=== PATIENT | male | born 1945 | race Caucasian/White ===

== ENCOUNTER 2016-11-05 13:04 | Inpatient (IN) | payer MEDICARE ==
[2016-11-05] VITALS (9 sets, daily range): BP systolic 83–94; BP diastolic 55–66; PULSE 62–73; RESP 13–20; O2SAT 94–100
[~2016-11-05] VITALS: Ht 175.3 cm; Wt 71.0 kg
[~2016-11-05 13:04] MED LIST: APIX5TAB PO; CHOL5000 PO; HYDR-4003 PO; IPIL50VI IV; KEP500TA PO; MIRT7.5T8 PO; NIVO40VI IV
--- NOTE | 2016-11-05 13:16 | ED.REPORT ---
HPI-General Illness Date of Service Nov 05, 2016 ED Provider: The patient is a 70 year old male with history of metastatic melanoma s/p lobectomy, atrial fibrillation, stroke, and small bowel obstruction, who was sent to the emergency department by ut oncologist Dr. Loaiza. He is currently receiving chemotherapy treatments. After his last infusion he became very ill and required outpatient IVF for a week for dehydration. He had a blood culture that showed evidence of a possible staph infection, so he was subsequently hospitalized at [facility] over the weekend. The second blood culture came back negative so the antibiotics were discontinued. He has experienced decreased appetite, nausea, vomiting, and diarrhea. His states he has lost over 20 pounds in the last few weeks. His also reports he had a stool test 4-5 days ago that did not show any pathogenic reason for his diarrhea. Nursing Notes Stated Complaint: GENERAL COMPLAINT Chief Complaint: General Complaint Nursing Notes Reviewed: Yes Allergies: Coded Allergies: No Known Allergies (Unverified , 08/12/16) Scheduled Apixaban (Eliquis) 5 Mg Tablet 5 MG PO BID Cholecalciferol (Vitamin D3) (Vitamin D3) 5,000 Unit Capsule 5,000 UNIT PO DAILY Ipilimumab (Yervoy) 50 Mg/10 Ml Vial 80 MG IV [id number] Levetiracetam (Keppra) 500 Mg Tablet 500 MG PO BID Mirtazapine (Mirtazapine) 7.5 Mg Tablet 7.5 MG PO HS Nivolumab (Opdivo) 40 Mg/4 Ml Vial 80 MG IV [id number] Scheduled PRN Hydrocodone-Acetaminophen 5-325 mg (Hydrocodone-Acetaminophen 5-325 mg) 1 Each Tablet 1 TABLET PO Q4 PRN PRN For Mild Pain General Time Seen by MD: 13:16 Chief Complaint Vomiting Hx Obtained From: Patient, Spouse Sudden in Onset?: No Onset Occurred: More than a week ago... Symptom Duration: Since onset Severity: Current: No pain currently Severity: Maximum: No pain Recent Healthcare: Recent doctor visit, Recent hospitalization Similar Sx Previous: Yes Past Medical History Past Medical History Notes: Oncology: Dr. Loaiza Past Medical History Metastatic melanoma Hx of SBO Hx of toxic megacolon Reports: Cancer, Stroke Reports: Atrial fibrillation Past Surgical History Lung Lobectomy Brain surgery, July 2016 Family History Noncontributory Smoking History Former Smoker Social History Alcohol Use: 1-3 per week Other Social History: Good social support, , Local resident Ambulatory Status Independent Review of Systems Full Review of Systems Constitutional: Reports: Recent wt loss, Weakness - generalized GI: Reports: Anorexia, Diarrhea, Nausea, Vomiting Complete sys rev & neg: except as marked. Physical Exam Vital Signs Vital Signs Date Time Temp Pulse Resp B/P Pulse Ox O2 Delivery O2 Flow Rate FiO2 11/05/16 13:32 36.9 73 20 93/55 94 11/05/16 13:20 36.9 69 16 88/58 94 Room Air 11/05/16 13:06 35.6 73 14 93/55 97 Initial VS: Reviewed, Vital signs abnormal (hypotensive) Head / Eyes: Atraumatic, Normocephalic, PERRL ENT: Mucous membranes moist, Conjunctiva normal, No scleral icterus Neck: Supple, Non-tender, Full range of motion Respiratory: Breath sounds normal, Clear to auscultation, No respiratory distress Cardiovascular: Regular rate & rhythm, Heart sounds normal, Intact distal pulses Lymphatic: No lymphadenopathy Extremities: Vascular intact, Neuro intact, No swelling, No tenderness Skin: Warm, Dry, No cyanosis Neurologic: Alert, Oriented, Nonfocal Psychiatric: Mood/affect normal, Behavior normal, Normal thought content General/Constitutional: Awake, Alert Distress / Hydration: Positive: Dehydration moderate Abdomen: Soft, Non-tender, No guarding, No rebound, BS normoactive, No distention Colostomy bag in place Interpretation & Diagnostics Lab Results Interpretation Result Diagram: 11/05/16 1339 11/05/16 1400 Test 11/05/16 13:39 11/05/16 13:42 11/05/16 14:00 11/05/16 15:40 White Blood Count 16.1th/mm3 (3.8-10.1) Red Blood Count 5.49mil/mm3 (4.40-5.80) Hemoglobin 15.1g/dL (13.8-17.2) Hematocrit 43.1% (41.0-50.0) Mean Corpuscular Volume 78.5fL (81-100) Mean Corpuscular Hemoglobin 27.5pg (27.0-35.0) Mean Corpuscular Hemoglobin Concent 35.0% (32.0-37.0) Red Cell Distribution Width 16.7% (12.3-15.4) Platelet Count 485bil/L (150-400) Neutrophils (%) (Auto) 86.6% (40-74) Lymphocytes (%) (Auto) 9.7% (14-46) Monocytes (%) (Auto) 2.3% (4-12) Eosinophils (%) (Auto) 0.1% (0-5) Basophils (%) (Auto) 0.1% (0-3) Lactic Acid Level 1.4mmol/L (0.4-2.0) Sodium Level 126mEq/L (134-144) Potassium Level 4.3mEq/L (3.5-5.2) Chloride Level 96mEq/L (97-108) Carbon Dioxide Level 11mmol/L (18-29) Blood Urea Nitrogen 73mg/dL (8-27) Creatinine 3.19mg/dL (0.76-1.27) Estimat Glomerular Filtration Rate 21mL/min (>59) Glucose Level 118mg/dL (60-99) Calcium Level 9.3mg/dL (8.5-10.1) Magnesium Level 2.6mg/dL (1.6-2.6) Total Bilirubin 0.3mg/dL (0.0-1.2) Aspartate Amino Transf (AST/SGOT) 24U/L (0-50) Alanine Aminotransferase (ALT/SGPT) 57U/L (0-44) Alkaline Phosphatase 115U/L (25-160) Troponin T < 0.010ug/L (0.0-0.011) Total Protein 6.8g/dL (6.4-8.4) Albumin 3.4g/dL (3.4-5.0) Hold Urine Received (Received) Test 11/05/16 15:52 ECG Interpretation ECG Interpretation: Sinus rhythm with a rate of 60 PACs Otherwise no acute ischemic changes Time: 14:15 Interpreted by: ED physician CT Chest Interpretation IMPRESSION: No acute cardiopulmonary disease process. Dictated by: Zuleima Peck MD, PhD on 11/05/2016 at 15:20 Study type: Chest CT no contrast Interpretation / Wet Read by: Interpret - Radiologist Re-Eval/Medical Decision Med Decision/Clinical Course Dehydration, acute kidney injury, leukocytosis without a pneumonia. Care is transferred to Dr. Marrero for further disposition and admission versus transfer. Source of Hx: Old records, Family Time of Eval: 14:58 Re-Evaluation/Progress Note: Rechecked the patient. Discussed plan to wait for imaging results. Time of Eval: 15:32 Re-Evaluation/Progress Note: Discussed CT results, diagnosis, and plan for admission. All questions were addressed. Consultation : Consulted With: Hospitalist Requested Call at: 15:05 Systems Checkout Mechanic: Will see patient, Agrees with eval, Agrees with plan, Accepts admit Counseled Regarding: Diagnosis, Lab results, Need for admission Discharge & Departure Primary Impression: Acute kidney injury Disposition: ADMITTED TO HOSPITAL Discharge Condition All VS Reviewed: Yes Condition: Stable Referrals: Sterling Garcia MD (PCP) Randee Loaiza MD Care Transferred to: [facility] Transferred at: 15:45 Scribe Attestation Portions of this note were transcribed by Quyen Moran. I, Dr. Padilla personally performed the history, physical exam and medical decision-making; I reviewed and confirmed the accuracy of the information in the transcribed note. Signed by: Diogenes Mosher, 11/05/2016 at 1540. copies to: Sterling Garcia MD; Randee Loaiza MD, Timothy S DO Nov 05, 2016 13:16 Quyen Moran Nov 05, 2016 13:42
[2016-11-05] MEDS ORDERED: 0.9% Sodium Chloride 1,000 ML IV ONE ×2 (13:42→13:50)
[2016-11-05 14:04] LABS: BASOPHILS % (AUTO) 0.1 % (0-3); EOSINOPHILS % (AUTO) 0.1 % (0-5); MONOCYTES % (AUTO) 2.3 % (4-12); Mean Corpuscular Hemoglobin 27.5 pg (27.0-35.0); Mean Corpuscular Volume 78.5 fL (81-100); NEUTROPHILS % (AUTO) 86.6 % (40-74); Platelet Count 485 bil/L (150-400)
[2016-11-05 14:41] LABS: TROPONIN T < 0.010 ug/L (0.0-0.011)
[2016-11-05 14:51] LABS: Magnesium 2.6 mg/dL (1.6-2.6)
--- NOTE | 2016-11-05 15:28 | DRSVH ---
PROCEDURE: CT CHEST WITHOUT CONTRAST ([id number]) INDICATIONS: SHORTNESS OF BREATH/HX OF PNEUMONIA TECHNIQUE: Noncontrast 5 mm thick sections acquired from the pulmonary apices to the posterior costophrenic angl es. 7 mm thick coronal and sagittal MIP reformats were then acquired. For radiation dose reduction, the following was used: automated exposure control, adjustment of mA and/or kV according to patient size. COMPARISON: [facility], CT, CT CHEST ABD PELVIS W CON, 10/08/2016, 13:09. FINDINGS: Image quality: Excellent. Lungs and pleura: No acute air space opacities. Small right lung nodules identified a prior CT scan obtained and 16 have resolved. Nodule in the left lower lobe has resolved. No new lung nodul es are identified. Postsurgical changes noted in the right lung base which are stable compared to cherise or examination. No pleural effusions or pneumothorax. Pleural thickening noted in the posterior aspec t of the left lung base. Central and peripheral airways are patent and normal in caliber. Mediastinum: Heart size is normal. Atherosclerotic calcifications noted in the aortic arch and the c oronary vasculature. No pericardial effusion. No mediastinal adenopathy by size criteria. Thoracic aorta and central pulmonary arteries are normal in size. Esophagus is normal in caliber. No hiatal hernia. Bones and chest wall: Postsurgical changes compatible with prior right thoracotomy noted. No suspici ous bony lesions. No vertebral body compression fractures. No axillary or supraclavicular adenopath y by size criteria. Thyroid gland is within normal limits. Abdomen: Hypoattenuating lesions in the left lobe of the liver are not significantly changed compared to prior CT scan. Limited evaluation of the upper abdomen is otherwise within normal limits. IMPRESSION: No acute cardiopulmonary disease process. Dictated by: Zuleima Peck MD, PhD on 11/05/2016 at 15:20 Approved by: Zuleima Peck MD, PhD on 11/05/2016 at 15:27
[2016-11-05] MEDS ORDERED: Lactated Ringer's 1,000 ML IV ONE ×2 (16:00→17:25)
[2016-11-05 16:33] LABS: APPEARANCE,URINE CLEAR (CLEAR,HAZY); COLOR,URINE YELLOW (YELLOW); OCCULT BLOOD,URINE TRACE (NEGATIVE); PH,URINE 5.5 (5.0-8.0); UROBILINOGEN,URINE NORMAL (NORMAL)
[2016-11-05] MEDS ORDERED: Alum-Mag Hydrox-Simeth 30 mL Suspension PO PRN (17:25)
[2016-11-05] MEDS ORDERED: Ondansetron 2 mg/mL 2 mL Inj IVPUSH PRN (17:25)
--- NOTE | 2016-11-05 17:48 | DRSVH ---
PROCEDURE: CT ABDOMEN AND PELVIS WITHOUT CONTRAST ([id number]) INDICATIONS: Sepsis, Cr 3 so no IV contrast TECHNIQUE: Noncontrast 5 mm thick sections acquired from the diaphragms to the symphysis. 5 mm coronal and sagi ttal reformats were then performed. For radiation dose reduction, the following was used: automated exposure control, adjustment of mA and/or kV according to patient size. COMPARISON: [facility], CT, CT CHEST ABD PELVIS W CON, 10/08/2016, 13:09. FINDINGS: Image quality: Excellent. ABDOMEN: Lung bases: There is a trace right pleural effusion. This is unchanged when compared with the study d ated 10/08/16. The lung bases are otherwise clear. Solid organs: Liver and spleen are normal in size. Gallbladder is unremarkable. Pancreas is normal in contours. No adrenal nodules. Kidneys are normal in size, without hydronephrosis or nephrolithi asis. Peritoneum and bowel: Unenhanced bowel loops demonstrate normal wall thickness and caliber. A divert ing ileostomy is present within the right lower quadrant. There is a small amount of herniated parast omal fat. Anastomotic suture is present in the right lower quadrant. Patient is likely status post ri ght hemicolectomy. No free fluid or air. Nodes and vessels: No retroperitoneal or mesenteric adenopathy by size criteria. Aorta and inferior vena cava are normal in caliber. There are scattered atheromatous calcifications throughout the aor ta and iliac arteries bilaterally. Miscellaneous: No ventral hernias. PELVIS: Genitourinary: Bladder wall thickness is normal. Miscellaneous: No inguinal hernias or adenopathy. Bones: No suspicious bony lesions. No vertebral body compression fractures. IMPRESSION: 1. No acute intra-abdominal findings. Probable prior appendectomy and right hemicolectomy. 2. Trace right pleural effusion or pleural thickening unchanged on the prior study. Dictated by: Beata Guzman M.D. on 11/05/2016 at 17:41 Approved by: Beata Guzman M.D. on 11/05/2016 at 17:46
[2016-11-05] MEDS ORDERED: ACET325C PO (17:50)
[2016-11-05] MEDS ORDERED: OFLO5DRO5 BOTH_EYES (17:50)
[2016-11-05] MEDS ORDERED: LACT1CAP73 PO (17:50)
[2016-11-05] MEDS ORDERED: ZLP5T PO (17:50)
[2016-11-05] MEDS ORDERED: LEVE250T4 PO (17:50)
[2016-11-05] MEDS ORDERED: MIRT15TA6 PO (17:50)
[2016-11-05] MEDS ORDERED: PRE20 PO (17:50)
--- NOTE | 2016-11-05 18:46 | NUR ---
ADMIT Patient arrived on floor at 1835 from ED. Able to self transfer from [facility] to bed with no assist. AAOx3, denies pain and in no apparent distress but reports he is very weak and has lost 20 lbs in the last two weeks. Med rec completed in ED by admit RN. Oriented to room, MPC, call light and hospital policy. Oncologist currently at bedside to assess patient. Bed low and locked, call light in reach, care and rounding ongoing.
--- NOTE | 2016-11-05 20:37 | PROG NOTE ---
[address] [address] PROGRESS NOTE PATIENT: ANIBAL SOLORIO : 1945 MR#: [id number] ADMIT: 11/05/2016 JOB ID: [id number] DATE: 11/05/2016 DIAGNOSES: 1. Current admission for persistent nausea, vomiting and diarrhea, associated with dehydration and acute kidney injury. 2. Widely metastatic melanoma, BRAF wild type. HISTORY OF PRESENT ILLNESS: The patient is a very pleasant 70-year-old gentleman with a recent history of metastatic melanoma, for which he has so far undergone two craniotomies, a right lower lobectomy, right hemicolectomy, stereotactic brain radiotherapy, and immune checkpoint inhibitor therapy including four infusions of pembrolizumab and so far three infusions of nivolumab/ipilimumab combination. He has responded to the latter, but has had excessive toxicity from it. His most recent treatment was given on October 18, 2016. He is on anticoagulation therapy for left lower extremity DVT. CURRENT ILLNESS: Roughly a week after his last immune therapy on October 18, his current illness started with persistent severe diarrhea, nausea, anorexia and continued weight loss. He initially had fever, but that subsequently resolved. He was evaluated in our clinic, and had a positive blood culture on October 30. Initially, it was reported as gram-positive cocci, but later this was only one of four bottles, and it was coagulase negative Staph. Nonetheless, before knowing the bacterial identification, the patient was admitted at [facility] and started vancomycin. He only received vancomycin for two days and then it was stopped as bacterial identification came in. He was also started on IV steroids for his immune-related diarrhea. He was discharged from [facility] last Friday, but his diarrhea and nausea continued at home. On day of discharge on Friday, his creatinine was 2, and it has further increased to 3.2 today. His contacted our office and we advised them to refer to ER. Currently after receiving IV hydration in the ED, he feels better. He actually feels hungry. He denies any abdominal pain. He has not had any fever, chills or sweats. He vomited this morning, but does not feel nauseated anymore. His diarrhea has continued. PHYSICAL EXAMINATION: Appears weak, but in no discomfort. Blood pressure 89/60, heart rate 64, O2 saturation 99% on room air. Temperature afebrile. HEENT normal. Lungs: Clear to auscultation bilaterally. Cardiac: Regular rate and rhythm. Abdomen is soft and nontender without mass or hepatosplenomegaly. Extremities: No edema. CT chest and CT abdomen/pelvis without contrast was obtained earlier today. The previous metastatic lesion in the left lower lobe seems to have resolved. CT scan of abdomen and pelvis was negative for acute intra-abdominal findings. Liver grossly appears unremarkable, but this is a noncontrast study. LABORATORY DATA: Creatinine 3.2. Sodium 126, potassium 4.3, albumin 3.4. WBC count 16,000 with 87% neutrophils, hemoglobin 15.1, and platelet count 485,000. IMPRESSION AND PLAN: 1. Severe diarrhea, associated with dehydration and acute kidney injury. I believe his diarrhea is related to immune checkpoint inhibitor therapy, and the treatment for this is glucocorticoid therapy. I will start him on IV Solu-Medrol 1 mg/kg IV b.i.d. Continue hydration with normal saline 100 mL/h. Monitor renal function daily. As far as diet, I would like this patient to have the liberty to order regular diet, but he may choose liquids or pureed. 2. There is no indication to give this gentleman antibiotic therapy. His leukocytosis is related to steroids. 3. Metastatic melanoma. This seems to have responded to immune checkpoint inhibitor therapy, although later he needs to have a contrast CT scan of abdomen and pelvis to assess his liver metastases. 4. Left lower extremity deep venous thrombosis. Continue Eliquis but dose reduce to 2.5 mg b.i.d. based on renal function.
--- NOTE | 2016-11-05 21:27 | PCM.HPMED ---
Subjective Date of Service Nov 05, 2016 Primary Provider: Admitting Physician: Patrice Ortiz MD Primary Care Physician: Sterling Garcia MD Attending Physician: Patrice Ortiz MD Chief Complaint: intractable nausea, vomiting, food intolerability History of Present Illness: 70 year old male with history of metastatic melanoma s/p lobectomy, atrial fibrillation, stroke, and small bowel obstruction with ileostomy p/w intractable nausea vomiting diarrhea Patient was usual state of health until 12 days ago, started having intractable nausea and vomiting diarrhea. Episode started one week after his immunotherapy. Patient was admitted to [facility], blood cultures initially positive for infection,"staph" started on antibiotics, however repeat one was negative. but also found to have pneumonia, so patient was getting antibiotics mainly for pneumonia later the course. During this hospital course, pt had persistent nausea and vomiting and copious diarrhea, unable to eat anything, lost 12 pounds within 12 days. Patient was discharged 2 days ago with [id number] and cefuroxime 500 mg twice a day for pneumonia. was consulted during hospitalization, started prednisone 75 mg bid one day prior to d/c, in the hope that it could treat intractable nausea, fluid intolerability as per pt. Patient was able to eat something on the day of discharge. However since patient was discharged, symptoms continued, diarrhea turned greenish, still very copious >1liters/d continuously, patient consulted with Dr. Quijano today, sent to [facility] for further management In the emergency room VS 93/55, 73, 14, afebrile, 97% onRA, labs notable for wbc16, significant EVELYNE, worsening hyponatremia, received 3liter of NS. leone scan chest/abd/pelvis showed no acute findings. ROS:currently pt denied fever, chills, chest pain, palpitation, cough, sputum, abdominal pain, nausea, vomiting. Review of Systems: Pertinent positives as noted in history of present illness. All other systems were reviewed and are negative Allergies Coded Allergies: No Known Allergies (Unverified , 08/12/16) Home Medications Scheduled Cefuroxime 500mg bid [id number] qd Apixaban (Eliquis) 5 Mg Tablet 5 MG PO BID Cholecalciferol (Vitamin D3) (Vitamin D3) 5,000 Unit Capsule 5,000 UNIT PO DAILY Ipilimumab (Yervoy) 50 Mg/10 Ml Vial 80 MG IV [id number] Levetiracetam (Keppra) 500 Mg Tablet 500 MG PO BID Mirtazapine (Mirtazapine) 7.5 Mg Tablet 7.5 MG PO HS Nivolumab (Opdivo) 40 Mg/4 Ml Vial 80 MG IV [id number] Scheduled PRN Hydrocodone-Acetaminophen 5-325 mg (Hydrocodone-Acetaminophen 5-325 mg) 1 Each Tablet 1 TABLET PO Q4 PRN PRN For Mild Pain PMH PMHX 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 Metastatic melanoma Lung Lobectomy Brain surgery, July 2016 Hx of SBO Hx of toxic megacolon Stroke Atrial fibrillation FAMILY HX no cancer Smoking History Former Smoker SOCIAL EtOH Social History Hx Alcohol Use: Yes (occasional beer) Hx Substance Use: No Smoking Status: Former Smoker Exam Vital Signs Vital Sign - Last Date Time Temp Pulse Resp B/P Pulse Ox O2 Delivery O2 Flow Rate FiO2 11/05/16 17:59 64 19 89/60 99 Room Air 11/05/16 13:32 36.9 Exam NAD, comfortably laying down on the bed no JVD, MMM, no LAD RRR, nl s1, s2 no mrg CTAB, no w,c S,ND,NT,normoactive BS+ warm, no edema, pulses 2/[address], no remaining stools Lab and Diagnostics Result Diagram: 11/05/16 1339 11/05/16 1400 Assessment & Plan 70 year old male with history of metastatic melanoma s/p lobectomy, atrial fibrillation, stroke, and small bowel obstruction with ileostomy p/w intractable nausea vomiting diarrhea acute, active #significant dehydration with food intolerability, intractable nausea vomiting diarrhea, likely related to active immunotx, panscan negative for organica causes, which is reassuring. -will continue [id number] qd for now, -hold off on Cefuroxime based on unremarkable Chest CT, SIRS neg -will try clear diet, with zofran pre-medicated tonight, pt is amenable to TPN as similar episode happened in the past. #hypotension, POA, seemed chronic based on previous v/s, pt mentating well, not tachycardic, will monitor on telemetry for now chronic, stable #metastatic melanoma s/p lobectomy, on immunotx -appreciate oncology consult tomorrow #small bowel obstruction with ileostomy, monitor output q12h #atrial fibrillation, stroke, continue apixaban. dispo:Patient will be admitted with inpatient status with expectation of inpatient therapy for more than 2 midnights diet:clear now dvt ppx:systemic AC Full code Time spent 65 minutes Patrice Ortiz MD Nov 05, 2016 19:05
[2016-11-05] MEDS: MethylprednisoLONE Sodium Succinate 40 mg/mL Inj IVPUSH SCH (22:27)
[2016-11-05] MEDS: Lactated Ringer's 1,000 ML IV SCH (22:28)
[2016-11-06] VITALS (7 sets, daily range): BP systolic 97–118; BP diastolic 52–75; PULSE 62–74; RESP 16–18; O2SAT 97–99
--- NOTE | 2016-11-06 06:21 | NUR ---
Uneventful Night: Pt had an uneventful night, no c/o pain, chest pain or SOB. Pt slept most of the night, pleasant and cooperative with care.
[2016-11-06 06:56] LABS: BASOPHILS % (AUTO) 0.1 % (0-3); EOSINOPHILS % (AUTO) 0 % (0-5); MONOCYTES % (AUTO) 1.3 % (4-12); Mean Corpuscular Hemoglobin 27.6 pg (27.0-35.0); Mean Corpuscular Volume 80.3 fL (81-100); NEUTROPHILS % (AUTO) 90.9 % (40-74); Platelet Count 318 bil/L (150-400)
[2016-11-06 07:22] LABS: Magnesium 2.3 mg/dL (1.6-2.6); Phosphorus 5.2 mg/dL (2.5-4.9)
[2016-11-06] MEDS ORDERED: predniSONE 20 mg Tablet PO SCH (08:00)
[2016-11-06] MEDS: Lactated Ringer's 1,000 ML IV SCH ×3 (08:59→23:24)
[2016-11-06] MEDS: MethylprednisoLONE Sodium Succinate 40 mg/mL Inj IVPUSH SCH ×2 (09:25→20:09)
--- NOTE | 2016-11-06 10:09 | NUR ---
Social Work: Brief Note Data: Pt is a 70 y/o male admitted for EVELYNE. Pt's PCP is Dr Garcia, pt's insurance is Medicare with [employer] supp. EMR reviewed. FORK OPERATOR attempted to meet with pt for initial assessment, pt using the restroom. Per previous visits, pt has history with [facility], RN/PT. FORK OPERATOR gave access to [facility]. FORK OPERATOR will attempt initial assessment at a later time. Assessment: Pt who is independent at baseline. Plan: Pt will likely d/c home via POV with resume [facility], FORK OPERATOR will attempt initial assessment at a later time. FORK OPERATOR will continue to follow. AISSATOU Benites
--- NOTE | 2016-11-06 11:19 | NUR ---
Social Work-initial assessment: Data:See initial assessment. Pt is a 70 y/o male who was admitted on 11/05/16 for EVELYNE per H&P. Pt's insurance is [employer] and [employer] and PCP is Sterling Garcia MD. EMR reviewed. SW met with pt to discuss discharge planning, SW role explained. Pt resides at home with his in [place] where he remains independent with ADLs. Pt does not use any DME and does not drive. Pt has no [facility] care insurance or VA benefits. SW discussed DPOA/ advanced directive, pt states they have completed this, SW encouraged pt to bring a copy into the hospital. Pt has history with [facility] and has no SNF history. SW provided pt with phone number and plan on white board in room. SW placed a call to pt's Claudia and discussed plans. states they used to have [facility] in the past, but are not currently open on Services. states that she does not feel like they will need HH services. plans on providing transport at discharge. No anticipated discharge needs. SW will continue to follow if needs arise. Assessment:Pt who is independent at baseline. Plan:Pt to discharge home when medically stable via POV. No anticipated discharge needs. SW will continue to follow if needs arise. AISSATOU Werner Addendum: 11/06/16 at 1134 by PAUL LARA Amended: Links added.
--- NOTE | 2016-11-06 11:46 | PCM.PNMED ---
Subjective Date of Service Nov 06, 2016 Subjective Patient reportedly was able to tolerate Risotto yesterday No father nausea or vomiting, still has watery stools noted in ostomy bag Patient feels hungry, diet advanced to general Exam Vital Signs Vital Sign - Last Date Time Temp Pulse Resp B/P Pulse Ox O2 Delivery O2 Flow Rate FiO2 11/06/16 11:24 36.4 11/06/16 10:04 73 16 103/69 99 Room Air Intake and Output 11/05/16 11/05/16 11/06/16 Cumulative From/Thru 15:00 23:00 07:00 11/05/16 13:06 - 11/06/16 06:32 Intake Total 2000 ml 1000 ml 1037 ml 4037 ml Output Total 100 ml 1000 ml 1100 ml Balance 2000 ml 900 ml 37 ml 2937 ml Intake Oral 350 ml 350 ml IV Total 2000 ml 1000 ml 687 ml 3687 ml Output Urine Total 750 ml 750 ml Stool Total 100 ml 250 ml 350 ml Exam NAD, comfortably laying down on the bed no JVD, MMM, no LAD RRR, nl s1, s2 no mrg CTAB, no w,c S,ND,NT,normoactive BS+ warm, no edema, pulses 2/[address], greenish watery diarrhea IVs and Medications Medications Reviewed: Medications were reviewed in detail Lab and Diagnostics Result Diagram: 11/06/1662711/06/16627 Assessment & Plan 70 year old male with history of metastatic melanoma s/p lobectomy, atrial fibrillation, stroke, and small bowel obstruction with ileostomy p/w intractable nausea vomiting diarrhea acute, active #significant dehydration with food intolerability, intractable nausea vomiting diarrhea, likely related to active immunotx, panscan negative for organica causes, which is reassuring. -Appreciate input, started Solu-Medrol 60 q12h yesterday, pt seemed to respond, able to tolerate diet. -hold off on Cefuroxime based on unremarkable Chest CT, SIRS neg -will try general diet, with zofran prn, Of note pt is amenable to TPN as similar episode happened in the past. #hypotension, POA, seemed chronic based on previous v/s, pt mentating well, not tachycardic, general trends improved with steroid #EVELYNE, POA, likely prerenal from dehydration, improving with hydration, trends cr , avoid renal toxin, renally adjust meds. chronic, stable #metastatic melanoma s/p lobectomy, on immunotx -appreciate oncology input #small bowel obstruction with ileostomy, monitor output q12h #atrial fibrillation, stroke, continue apixaban 2.5 bid #seizure d/o, continue keppra home dose dispo:Patient will be admitted with inpatient status with expectation of inpatient therapy for more than 2 midnights diet:clear now dvt ppx:systemic AC Full code Time spent 35 minutes Patrice Ortiz MD Nov 06, 2016 11:46
--- NOTE | 2016-11-06 18:32 | PROG NOTE ---
[address] [address] PROGRESS NOTE PATIENT: ANIBAL SOLORIO : 1945 MR#: [id number] ADMIT: 11/05/2016 JOB ID: [id number] DATE: 11/06/2016 SUBJECTIVE: Today the patient had a much better day. His appetite has been quite good. He had most of his breakfast and lunch, and has eaten some of his dinner too. Denies nausea. He remains very weak. He has been only ambulatory to bathroom with the help of aide. Denies any pain. He continues to have plenty of liquid output through ostomy, but says there has been some solid too. OBJECTIVE: Awake, alert. Oriented x3. Appears short of breath in bed. Blood pressure 97/52, heart rate 66, temperature remains afebrile, O2 saturation 97% on room air. LABORATORY DATA: Leukocytosis and lymphopenia are still there. Creatinine has improved to 2.6. Albumin is low at 2.8. Uric acid is high at 10.7. IMPRESSION AND PLAN: 1. Acute kidney injury, improving. Continue IV hydration with lactated Ringer 100 mL/h. 2. Immune related enterocolitis. Continue IV Solu-Medrol 1 mg/kg b.i.d. There is also an order for prednisone which I will discontinue. 3. Hyperuricemia. I will place an order for allopurinol 200 mg orally once daily. 4. Left lower extremity deep venous thrombosis (DVT). Continue apixaban with renal dose adjustment, but with further improvement in renal function the dose will need to be increased to 5 mg b.i.d. 5. Metastatic melanoma. CT chest done yesterday suggests resolution of metastatic lung nodule in the left lower lobe. Later, he will need to have contrast CT scan of abdomen and pelvis for reassessment of liver metastases. 6. Physical therapy.
[2016-11-07 01:03] VITALS: BP 112/68; PULSE 68; RESP 16; O2SAT 96
--- NOTE | 2016-11-07 04:38 | NUR ---
diet/BM Pt has been tolerating general diet well w/o N/V. Pt has liquid, with some solid stool in his ileostomy. SBA to the BR; calls appropriately. bed alarm on for safety.
[2016-11-07 04:49] VITALS: PULSE 90
[2016-11-07] MEDS: Lactated Ringer's 1,000 ML IV SCH ×2 (04:58→16:15)
[2016-11-07 05:04] VITALS: BP 124/69; PULSE 69; RESP 16; O2SAT 97
[2016-11-07 07:09] LABS: BASOPHILS % (AUTO) 0.1 % (0-3); EOSINOPHILS % (AUTO) 0 % (0-5); MONOCYTES % (AUTO) 5.4 % (4-12); Mean Corpuscular Hemoglobin 27.4 pg (27.0-35.0); Mean Corpuscular Volume 80.6 fL (81-100); NEUTROPHILS % (AUTO) 88.7 % (40-74); Platelet Count 369 bil/L (150-400)
[2016-11-07 07:47] LABS: Magnesium 2.1 mg/dL (1.6-2.6)
[2016-11-07] MEDS: MethylprednisoLONE Sodium Succinate 40 mg/mL Inj IVPUSH SCH ×2 (07:57→21:32)
[2016-11-07 08:00] VITALS: PULSE 77
[2016-11-07 09:28] VITALS: BP 110/69; PULSE 69; RESP 18; O2SAT 99
--- NOTE | 2016-11-07 13:08 | NUR ---
movie projectionistdietary manager note: 70 yrs old male with Dx: Metastatic Melanoma instructed to go to the ER for vomiting, unable to keep food down, and colostomy putting out copious amounts of stool. Following up with patient since he was instructed to go to ER on Friday. He states that his stool is starting to become formed. He says "they sent in Physical Therapy which means I am going home soon". Patient states he is eating better and keeping food down. Patient states he does not feel he will need help at home. The social service worker here asked me and Claudia that and Claudia feels she can do it. Will continue to follow and address any care needs as they arise.
--- NOTE | 2016-11-07 13:43 | PCM.PNMED ---
Subjective Date of Service Nov 07, 2016 Subjective Patient is feeling good Able to tolerate regular diet Started to have soft stools, Solu Medrol has been continued Exam Vital Signs Vital Sign - Last Date Time Temp Pulse Resp B/P Pulse Ox O2 Delivery O2 Flow Rate FiO2 11/07/16 09:28 36.4 69 18 110/69 99 Room Air Intake and Output 11/06/16 11/06/16 11/07/16 Cumulative From/Thru 15:00 23:00 07:00 11/05/16 13:06 - 11/07/16 06:21 Intake Total 2219 ml 1415 ml 7671 ml Output Total 1900 ml 2050 ml 5050 ml Balance 319 ml -635 ml 2621 ml Intake Oral 995 ml 400 ml 1745 ml IV Total 1224 ml 1015 ml 5926 ml Output Urine Total 400 ml 850 ml 2000 ml Stool Total 1500 ml 1200 ml 3050 ml Exam NAD, comfortably laying down on the bed no JVD, MMM, no LAD RRR, nl s1, s2 no mrg CTAB, no w,c S,ND,NT,normoactive BS+ warm, no edema, pulses 2/[address], brown liquid stools IVs and Medications Medications Reviewed: Medications were reviewed in detail Lab and Diagnostics Result Diagram: 11/07/1640 11/07/1640 Assessment & Plan 70 year old male with history of metastatic melanoma s/p lobectomy, atrial fibrillation, stroke, and small bowel obstruction with ileostomy p/w intractable nausea vomiting diarrhea acute, active #significant dehydration with food intolerability, intractable nausea vomiting diarrhea, likely related to active immunotx, panscan negative for organica causes, which is reassuring. -Appreciate input, started Solu-Medrol 60 q12h, pt seemed to respond , able to tolerate diet, likely switch to prednisone tomorrow. -hold off on Cefuroxime based on unremarkable Chest CT, SIRS neg -continue general diet, with zofran prn, Of note pt is amenable to TPN as similar episode happened in the past. #hypotension, POA, seemed chronic based on previous v/s, pt mentating well, not tachycardic, general trends improved with steroid #EVELYNE, POA, likely prerenal from dehydration, improving with hydration, trends cr , avoid renal toxin, renally adjust meds. chronic, stable #metastatic melanoma s/p lobectomy, on immunotx -appreciate oncology input #small bowel obstruction with ileostomy, monitor output q12h, still>1liters #atrial fibrillation, stroke, continue apixaban 2.5 bid to 5 bid given resolving EVELYNE #seizure d/o, continue keppra home dose dispo:likely in 1-2days diet:general dvt ppx:systemic AC Full code Time spent 35min Patrice Ortiz MD Nov 07, 2016 13:43
--- NOTE | 2016-11-07 14:44 | NUR ---
Evaluation completed. Please go to "Notes" then click on "Assessments and Notes" (bottom left corner of screen). Then select appropriate discipline tab on top of screen.
--- NOTE | 2016-11-07 16:53 | NUR ---
Activity and Ileostomy Pt up to chair for meals and BR using SBA. Reports "I feel stronger than yesterday". PT following pt daily. Ostomy bag matched and changed with help of wound care therapist. Reports "stool is still thinner than normal". Fluids continue.
--- NOTE | 2016-11-07 18:37 | PROG NOTE ---
[address] [address] PROGRESS NOTE PATIENT: ANIBAL SOLORIO : 1945 MR#: [id number] ADMIT: 11/05/2016 JOB ID: [id number] DATE: 11/07/2016 INPATIENT MEDICAL ONCOLOGY PROGRESS REPORT: SUBJECTIVE: Today he had a fairly good day. He continues to have a good appetite and is able to tolerate solid food. The diarrhea, however, continues without any noticeable improvement from yesterday. [facility]. He denies any pain. OBJECTIVE: Resting comfortably in bed, but appears weak and tired. Blood pressure 110/69, heart rate 69, temperature 36.4, O2 saturation 99% on room air. Total stool output yesterday was recorded at 1750 mL. LABORATORY DATA: Creatinine has further improved to 2.2. Albumin remains low at 2.7. Leukocytosis has slightly improved. IMPRESSION AND PLAN: 1. Immune-related enterocolitis associated with diarrhea. Nausea has resolved. I do not think the patient is ready yet to switch to oral prednisone. Continue IV Solu-Medrol at current dose for another 24 hours and we will reassess. 2. Acute kidney injury. Although this is likely related to ATN from dehydration, it can also be due to immune related nephritis, which has been reported on this immune therapy for melanoma. Nonetheless, it is improving. Continue daily monitoring. 3. Continue regular diet and physical therapy. 4. I will return tomorrow midday for assessment, but I told the patient that he will need to stay a few more days in the hospital until his condition adequately recovers. He was discharged too quick from [facility] and had to be readmitted within 48 hours.
[2016-11-07 19:58] VITALS: BP 109/70; PULSE 55; RESP 18; O2SAT 99
[2016-11-08] MEDS: Lactated Ringer's 1,000 ML IV SCH (02:29)
[2016-11-08 06:16] VITALS: BP 115/61; PULSE 65; RESP 18; O2SAT 97
[2016-11-08 06:53] LABS: BASOPHILS % (AUTO) 0 % (0-3); EOSINOPHILS % (AUTO) 0 % (0-5); MONOCYTES % (AUTO) 2.4 % (4-12); Mean Corpuscular Hemoglobin 27.9 pg (27.0-35.0); Mean Corpuscular Volume 81.7 fL (81-100); NEUTROPHILS % (AUTO) 89.6 % (40-74); Platelet Count 344 bil/L (150-400)
[2016-11-08 07:10] LABS: Magnesium 2.2 mg/dL (1.6-2.6); Phosphorus 3.4 mg/dL (2.5-4.9)
[2016-11-08] MEDS: MethylprednisoLONE Sodium Succinate 40 mg/mL Inj IVPUSH SCH ×2 (08:07→20:30)
[2016-11-08 09:33] VITALS: BP 101/61; PULSE 66; RESP 18; O2SAT 97
--- NOTE | 2016-11-08 11:57 | NUR ---
NUTRITION ASSESSMENT: ASSESS: Pt is a 70yo M admitted for EVELYNE and uncontrolled n/v/d due one week after his immunotherapy. Pt reported minimal appetite and lost about 20lbs in 2 weeks (11% wt lossx2 weeks=significant). Pt has a history of needing TPN to meet kcal/pro needs. Pt's current diet is General and he is tolerating well at 75-100%. No reported n/v. PMHX: metastatic melanoma, afib, CVA, SBO LABS: Reviewed. CO2 14, Bun 59, Estimation Manager 2.05, Glu 141, Ca 8.4, Alb 2.6 MEDS: Reviewed. Bacid GI: ileostomy SKIN: Ben 22, mild fat/muscle loss visible in arms CURRENT WTS: 69kg, BMI 22.7kg/m2, reported wt loss: 11%x2 weeks DIET: General, PO 75-100% EST. NEEDS: ca, EVELYNE Kcals:2070-2415kcal/day (30-35kcal/kg) Pro: 70-85g/day (1.0-1.2g/kg) NUTRITION DIAGNOSIS: 1.) Moderate pro/kcal malnutrition related to adverse reaction to medication as evidence by pt with 11% wt loss in 2 weeks, reported decreased PO intake, n/v/d and mild muscle/fat loss visible in arms NUTRITION INTERVENTION: 1.) Continue current diet. PO adequate for needs 2.) Discussed w/pt importance of staying hydrated when experiencing n/v/d and eating smaller more frequent meals when appetite is decreased. Provided handout that discusses n/v management 3.) Provided high kcal/pro recipe book. Pt reported that his makes him high kcal/pro shakes. Encouraged pt to shake recipe book with to give her more ideas when cooking. MONITOR / EVAL: PO, wt, GI, labs, POC, nutrition status. Will continue to monitor per moderate nutrition risk guidelines
--- NOTE | 2016-11-08 12:48 | PCM.PNMED ---
Subjective Date of Service Nov 08, 2016 Subjective Patient is continued to do well Tolerating general diet Functional function continues to improve Still on Solu-Medrol per Dr. Loaiza Exam Vital Signs Vital Sign - Last Date Time Temp Pulse Resp B/P Pulse Ox O2 Delivery O2 Flow Rate FiO2 11/08/16 09:33 36.4 66 18 101/61 97 Room Air Intake and Output 11/07/16 11/07/16 11/08/16 Cumulative From/Thru 15:00 23:00 07:00 11/05/16 13:06 - 11/08/16 06:51 Intake Total 1968 ml 1712 ml 92355 ml Output Total 1850 ml 1125 ml 8025 ml Balance 118 ml 587 ml 3326 ml Intake Oral 962 ml 300 ml 3007 ml IV Total 1006 ml 1412 ml 8344 ml Output Urine Total 1100 ml 525 ml 3625 ml Stool Total 750 ml 600 ml 4400 ml Exam NAD, comfortably laying down on the bed no JVD, MMM, no LAD RRR, nl s1, s2 no mrg CTAB, no w,c S,ND,NT,normoactive BS+ warm, no edema, pulses 2/[address], more formed stool then yesterday IVs and Medications Medications Reviewed: Medications were reviewed in detail Lab and Diagnostics Result Diagram: 11/08/1661011/08/16 06 Assessment & Plan 70 year old male with history of metastatic melanoma s/p lobectomy, atrial fibrillation, stroke, and small bowel obstruction with ileostomy p/w intractable nausea vomiting diarrhea acute, active #significant dehydration with food intolerability, intractable nausea vomiting diarrhea, likely related to active immunotx, panscan negative for organica causes, which is reassuring. -Appreciate input, started Solu-Medrol 60 q12h, pt seemed to respond , able to tolerate diet, likely switch to prednisone, appreciate input. -hold off on Cefuroxime based on unremarkable Chest CT, SIRS neg -continue general diet, with zofran prn, Of note pt is amenable to TPN as similar episode happened in the past. #hypotension, POA, seemed chronic based on previous v/s, pt mentating well, not tachycardic, general trends improved with steroid #EVELYNE, POA, likely prerenal from dehydration, improving with hydration, trends cr , avoid renal toxin, renally adjust meds. chronic, stable #metastatic melanoma s/p lobectomy, on immunotx -appreciate oncology input #small bowel obstruction with ileostomy, monitor output q12h, still>1liters #atrial fibrillation, stroke, continue apixaban 2.5 bid to 5 bid given resolving EVELYNE #seizure d/o, continue keppra home dose dispo:likely in 1-2days, please follow with . diet:general dvt ppx:systemic AC Full code Time spent 35 minutes Patrice Ortiz MD Nov 08, 2016 12:48
--- NOTE | 2016-11-08 14:04 | PROG NOTE ---
[address] [address] PROGRESS NOTE PATIENT: ANIBAL SOLORIO : 1945 MR#: [id number] ADMIT: 11/05/2016 JOB ID: [id number] DATE: 11/08/2016 SUBJECTIVE: The patient continues to feel better. He feels his ostomy output is lessening and is getting thicker. A nurse just told me that it was a thick pudding consistency. He has no nausea, vomiting, and denies any abdominal pain. He remains afebrile. He has been getting stronger and has been walking steadier. OBJECTIVE: At times appears slightly confused. Blood pressure 101/61, heart rate 66, temperature 36.4, O2 saturation 97% on room air. Abdomen is soft and nontender, without rigidity or mass. LABORATORIES: Creatinine slightly further improved to 2.05. Albumin remains low at 2.6. Leukocytosis has been improving. RECOMMENDATIONS: 1. Continue Solu-Medrol at current dose for another 24 hours, and if the patient clinically is further improved tomorrow, assuming creatinine lower, transitioned to prednisone 60 mg b.i.d., and discharge home. I will discuss this case with the hospitalist physician tomorrow morning. 2. Upon discharge, transition back to Eliquis 5 mg b.i.d. and Keppra 500 mg b.i.d. 3. I will arrange oncology followup next week in our clinic.
[2016-11-08 14:12] VITALS: BP 100/60; PULSE 64; RESP 18; O2SAT 97
--- NOTE | 2016-11-08 14:38 | NUR ---
Social Work: Readiness for d/c Data: Pt is on day 3 of hospitalization. EMR reviewed. Pt discussed in rounds. MD state pt likely ready for d/c in 1-2 days. PT recommends outpt PT at d/c. No d/c planning needs anticipated at this time. FLESHING MACHINE OPERATOR will continue to follow if needs arise. Assessment: Pt who is independent at baseline. Plan: Pt will d/c home via POV when medically stable, likely in 1-2 days. No d/c planning needs anticipated at this time. FLESHING MACHINE OPERATOR will continue to follow if needs arise. AISSATOU Benites
[2016-11-08 16:52] VITALS: BP 109/62; PULSE 68; RESP 18; O2SAT 95
--- NOTE | 2016-11-08 17:52 | NUR ---
GI Stools firming this shift. Thick pudding like dark brown stool. Ostomy appliance changed. No skin breakdown noted. Intake increasing, IVF d/cd.
[2016-11-08 20:45] VITALS: BP 106/62; PULSE 67; RESP 18; O2SAT 98
--- NOTE | 2016-11-09 03:28 | NUR ---
Uneventful night Patient reports improvement in strength. SBA to bathroom. Patient completing most of his ostomy care. thick dark stool from ostomy. patient voiding in urinal. denies pain. uses call light appropriately. will continue to monitor.
[2016-11-09 06:16] VITALS: BP 117/63; PULSE 59; RESP 18; O2SAT 97
[2016-11-09] MEDS: MethylprednisoLONE Sodium Succinate 40 mg/mL Inj IVPUSH SCH (08:26)
[2016-11-09 10:07] LABS: Mean Corpuscular Hemoglobin 27.9 pg (27.0-35.0); Mean Corpuscular Volume 82.7 fL (81-100)
--- NOTE | 2016-11-09 10:57 | NUR ---
KAITLIN signed. AISSATOU Werner
--- NOTE | 2016-11-09 11:40 | PCM.DIMED ---
Discharge Instructions Date of Service Nov 09, 2016 Dates of Hospitalization Nov 05, 2016 at 17:24 Discharge Diagnosis Discharge Diagnosis Dehydration secondary to intractable nausea vomiting and diarrhea Hypotension Acute kidney injury Metastatic melanoma on immunotherapy A. fib stable Small bowel obstruction with ileostomy Diet No restrictions Activity Other (gradually return to daily activities as tolerated) Call your provider Fever or Chills, Shortness of breath, Bleeding, Vomitting, Excessive diarrhea, Weakness (unilateral) Patient Instructions Follow-up Provider: Sterling Garcia MD Follow-up with PCP in: 1 week Provider: Randee Loaiza MD Follow-up in: 1 week (if the appointment has not already been made please call to schedule an appointment) Stephanie Howe DO Nov 09, 2016 11:40
[2016-11-09] MEDS ORDERED: LEVE250T4 PO (11:42)
[2016-11-09] MEDS ORDERED: PRE20 PO (11:42)
--- NOTE | 2016-11-09 11:57 | NUR ---
Social Work-discharge: Data:EMR Reviewed. Pt is on day 4 of hospitalization for EVELYNE per H&P. Pt is medically stable to discharge today. PT has cleared pt for home with outpt PT. SW confirmed plan of discharge home at bedside, no needs identified. Pt's to provide transport home today. No discharge needs identified. All updated and agreeable to plan. Assessment:Pt who is independent at baseline. Plan:Pt to discharge home today via POV. Paperwork in the chart. SW will continue to follow. AISSATOU Werner
--- NOTE | 2016-11-09 12:57 | NUR ---
Ileostomy Pt c/o of leaking ileostomy bag, wafer was soiled both wafer and bag changed out. Stool is currently liquid and dark green. Will continue to monitor.
--- NOTE | 2016-11-09 13:50 | NUR ---
Discharge {t discharge to home with via private vehicle. Pt verbalized understanding of discharge and Rx instructions, personal belongings accounted for and left with pt.
--- NOTE | 2016-11-09 18:33 | PCM.DC.MED ---
Discharge Summary Date of Service Nov 09, 2016 Dates of Hospitalization Date of Hospital Admission Nov 05, 2016 at 17:24 Date of Discharge: Nov 09, 2016 Providers: Admitting Physician: Patrice Ortiz MD Primary Care Physician: Sterling Garcia MD Attending Physician: Patrice Ortiz MD Diagnosis at Time of Discharge Diagnosis at Time of Discharge Dehydration secondary to intractable nausea vomiting and diarrhea Hypotension Acute kidney injury Metastatic melanoma on immunotherapy A. fib stable Small bowel obstruction with ileostomy Brief History 70 year old male with history of metastatic melanoma s/p lobectomy, atrial fibrillation, stroke, and small bowel obstruction with ileostomy p/w intractable nausea vomiting diarrhea Patient was usual state of health until 12 days ago, started having intractable nausea and vomiting diarrhea. Episode started one week after his immunotherapy. Patient was admitted to [facility], blood cultures initially positive for infection,"staph" started on antibiotics, however repeat one was negative. but also found to have pneumonia, so patient was getting antibiotics mainly for pneumonia later the course. During this hospital course, pt had persistent nausea and vomiting and copious diarrhea, unable to eat anything, lost 12 pounds within 12 days. Patient was discharged 2 days ago with [id number] and cefuroxime 500 mg twice a day for pneumonia. was consulted during hospitalization, started prednisone 75 mg bid one day prior to d/c, in the hope that it could treat intractable nausea, fluid intolerability as per pt. Patient was able to eat something on the day of discharge. However since patient was discharged, symptoms continued, diarrhea turned greenish, still very copious >1liters/d continuously, patient consulted with Dr. Quijano today, sent to [facility] for further management In the emergency room VS 93/55, 73, 14, afebrile, 97% onRA, labs notable for [id number], significant EVELYNE, worsening hyponatremia, received 3liter of NS. leone scan chest/abd/pelvis showed no acute findings. ROS:currently pt denied fever, chills, chest pain, palpitation, cough, sputum, abdominal pain, nausea, vomiting. Hospital Course 70 year old male with history of metastatic melanoma s/p lobectomy, atrial fibrillation, stroke, and small bowel obstruction with ileostomy p/w intractable nausea vomiting diarrhea Patient was doing well today. Patient did have an elevated white blood cell count most likely secondary to steroid usage. The patient has been afebrile for greater than 24 hours and his creatinine had decreased to 1.99 upon discharge. The patient was discharged home on 60 mg twice a day of prednisone, elaquis 5 mg daily, Keppra 500 mg twice a day as per request of Dr. Loaiza. The patient will have a follow-up appointment within 1 week. The patient's diarrhea has decreased significantly and the patient states that the output from his ostomy is back to baseline. The patient's hyponatremia has resolved. The patient's hyponatremia has remained stable however the patient's blood pressure was 117/63 upon discharge. The patient was satting at 97% on room air. acute, active #significant dehydration with food intolerability, intractable nausea vomiting diarrhea, likely related to active immunotx, panscan negative for organica causes, which is reassuring. -Appreciate input, started Solu-Medrol 60 q12h, pt seemed to respond , able to tolerate diet, likely switch to prednisone, appreciate input. -hold off on Cefuroxime based on unremarkable Chest CT, SIRS neg -continue general diet, with zofran prn, Of note pt is amenable to TPN as similar episode happened in the past. #hypotension, POA, seemed chronic based on previous v/s, pt mentating well, not tachycardic, general trends improved with steroid #EVELYNE, POA, likely prerenal from dehydration, improving with hydration, trends cr , avoid renal toxin, renally adjust meds. chronic, stable #metastatic melanoma s/p lobectomy, on immunotx -appreciate oncology input #small bowel obstruction with ileostomy, monitor output q12h, still>1liters #atrial fibrillation, stroke, continue apixaban 2.5 bid to 5 bid given resolving EVELYNE #seizure d/o, continue keppra home dose dispo:likely in 1-2days, please follow with . diet:general dvt ppx:systemic AC Full code Exam Vital Signs (Last) Date Time Temp Pulse Resp B/P Pulse Ox O2 Delivery O2 Flow Rate FiO2 11/09/16 06:16 36.4 59 18 117/63 97 Room Air Exam Physical Exam: GEN: Patient was awake, alert, responding appropriately to questions HEENT: PERRLA, EOMI, Neck soft supple, trachea midline, nomocephalic/atraumatic CV: +S1/S2, RRR, positive systolic murmurs auscultated Respiratory: CTAB, no wheezes, rales, rhonchi GI: +bowel sounds x4, soft, compressible, non TTP, ostomy present with stool output. Skin: Positive circular melanoma lesion on the nose EXT: no c/c/e Neuro: CN II-XII grossly intact Psych: mood and affect were appropriate Test 11/05/16 13:42 11/05/16 14:00 11/05/16 15:40 11/05/16 15:52 Lactic Acid Level 1.4mmol/L (0.4-2.0) Troponin T < 0.010ug/L (0.0-0.011) Procalcitonin 0.11ng/mL (See Comment) Hold Urine Received (Received) Urine Color Yellow (YELLOW) Urine Appearance Clear (CLEAR,HAZY) Urine pH 5.5 (5.0-8.0) Urine Specific [place] 1.025 (1.003-1.035) Urine Protein Tracemg/dL (NEG,TRACE) Urine Glucose (UA) Negativemg/dL (NEGATIVE) Urine Ketones Negativemg/dL (NEGATIVE) Urine Occult Blood Trace (NEGATIVE) Urine Nitrite Negative (NEGATIVE) Urine Bilirubin Negative (NEGATIVE) Urine Urobilinogen Normalmg/dL (NORMAL) Urine Leukocyte Esterase Negative (NEGATIVE) Urine RBC 0-2/hpf (0-2) Urine WBC 0-5/hpf (0-5) Urine Epithelial Cells Moderate/hpf (NONE-MOD) Urine Crystals Uric acid crystals (NONE Urine Bacteria Few/hpf (NONE-FEW) Urine Hyaline Casts Occasional/lpf (NONE) Urine Granular Casts 5-20 (NONE SEEN) Urine Waxy Casts None seen (NONE SEEN) Urine Red Blood Cell Casts None seen (NONE SEEN) Urine White Blood Cell Casts None seen (NONE SEEN) Urine Mucus None seen (None Seen) Urine Trichomonas None seen (NONE SEEN) Urine Yeast None (NONE SEEN) Urinalysis Comment None Urine Culture Reflexed Not indicated Test 11/08/16 06:11 11/09/16 09:59 Neutrophils (%) (Auto) 89.6% (40-74) Lymphocytes (%) (Auto) 6.6% (14-46) Monocytes (%) (Auto) 2.4% (4-12) Eosinophils (%) (Auto) 0% (0-5) Basophils (%) (Auto) 0% (0-3) Uric Acid 6.7mg/dL (2.6-7.2) Phosphorus Level 3.4mg/dL (2.5-4.9) Magnesium Level 2.2mg/dL (1.6-2.6) White Blood Count 18.3th/mm3 (3.8-10.1) Red Blood Count 4.56mil/mm3 (4.40-5.80) Hemoglobin 12.7g/dL (13.8-17.2) Hematocrit 37.7% (41.0-50.0) Mean Corpuscular Volume 82.7fL (81-100) Mean Corpuscular Hemoglobin 27.9pg (27.0-35.0) Mean Corpuscular Hemoglobin Concent 33.7% (32.0-37.0) Red Cell Distribution Width 17.6% (12.3-15.4) Platelet Count 402bil/L (150-400) Sodium Level 137mEq/L (134-144) Potassium Level 4.3mEq/L (3.5-5.2) Chloride Level 107mEq/L (97-108) Carbon Dioxide Level 14mmol/L (18-29) Blood Urea Nitrogen 56mg/dL (8-27) Creatinine 1.99mg/dL (0.76-1.27) Estimat Glomerular Filtration Rate 36mL/min (>59) Glucose Level 137mg/dL (60-99) Calcium Level 8.8mg/dL (8.5-10.1) Total Bilirubin 0.2mg/dL (0.0-1.2) Aspartate Amino Transf (AST/SGOT) 14U/L (0-50) Alanine Aminotransferase (ALT/SGPT) 22U/L (0-44) Alkaline Phosphatase 71U/L (25-160) Total Protein 5.7g/dL (6.4-8.4) Albumin 3.0g/dL (3.4-5.0) Discharge Medications Discharge Medications Apixaban (Eliquis) 5 Mg Tablet 5 MG PO BID Prescribed by: ORLIN KING MD Ipilimumab (Yervoy) 50 Mg/10 Ml Vial 80 MG IV [id number] (Reported) Lactobacillus Combo No.11 (Probiotic) 1 Each Cap.sprink 1 EACH PO DAILY ( Reported) Levetiracetam (Levetiracetam) 250 Mg Tablet 500 MG PO BID Prescribed by: RONDA LONG DO Mirtazapine (Mirtazapine) 15 Mg Tablet 15 MG PO HS (Reported) Nivolumab (Opdivo) 40 Mg/4 Ml Vial 80 MG IV [id number] (Reported) Ofloxacin (Ofloxacin) 5 Ml Drops 1 GTT BOTH_EYES QID (Reported) Prednisone (PredniSONE) 20 Mg Tablet 60 MG PO BID Prescribed by: RONDA LONG DO As needed Acetaminophen (Acetaminophen) 325 Mg Capsule 325-650 MG PO DAILY PRN PRN For Pain (Reported) Zolpidem (Ambien) 5 Mg Tablet 5 MG PO HS PRN PRN For Insomnia (Reported) Followup Plan Discharge Diet: No restrictions Discharge Activity: Other (gradually return to daily activities as tolerated) Follow-up Provider: Sterling Garcia MD Follow-up with PCP in: 1 week Provider: Randee Loaiza MD Follow-up in: 1 week (if the appointment has not already been made please call to schedule an appointment) copies to: Sterling Garcia MD, Precious L DO Nov 09, 2016 11:43
[2017-01-10] MEDS ORDERED: LEVO50TA6 PO (09:09)
== END 2016-11-09 13:40 | disposition home or self-care (01) | DRG 394 ==
LOC: SED 13:04 → UNDOADMIN 17:24 → MPC 17:24
PROVIDERS: ADMIT Internal Medicine; ATTEND Internal Medicine
DX: K52.1 Toxic gastroenteritis and colitis (principal); E87.1 Hypo-osmolality and hyponatremia; N17.9 Acute kidney failure, unspecified; I82.492 Acute embolism and thrombosis of other specified deep vein of left lower extremity; E87.2 Acidosis; T45.1X5A Adverse effect of antineoplastic and immunosuppressive drugs, initial encounter; E86.0 Dehydration; Z87.891 Personal history of nicotine dependence; Z93.3 Colostomy status; Z86.73 Personal history of transient ischemic attack (TIA), and cerebral infarction without residual deficits; I48.91 Unspecified atrial fibrillation; G40.909 Epilepsy, unspecified, not intractable, without status epilepticus

== ENCOUNTER 2016-11-20 10:17 | Emergency (ER) | payer MEDICARE ==
[~2016-11-20] VITALS: Ht 175.3 cm; Wt 69.5 kg
[~2016-11-20 10:17] MED LIST changes: +ACET325C PO; -CHOL5000 PO; -HYDR-4003 PO; -KEP500TA PO; +LACT1CAP73 PO; +LEVE250T4 PO; +MIRT15TA6 PO; -MIRT7.5T8 PO; +OFLO5DRO5 BOTH_EYES; +PRE20 PO; +ZLP5T PO
[2016-11-20 10:48] VITALS: BP 111/80; PULSE 70; RESP 14; O2SAT 98
--- NOTE | 2016-11-20 11:33 | ED.REPORT ---
HPI-Abd Pain M 40 and Over Date of Service Nov 20, 2016 ED Provider: Doc,Ed MD The patient is a 70 year old male with history of metastatic melanoma s/p lobectomy, atrial fibrillation, stroke, and small bowel obstruction, who presents to the emergency department complaining of a stoma issue. The patient is concerned that his stoma prolapsed early this morning. He has noticed a small amount of abdominal pain. He has been doing well over the last few days. He has not been vomiting or noticed a fever. He was admitted in October for 4 days for severe dehydration. Nursing Notes Stated Complaint: PROLAPSED STOMA Chief Complaint: Male Abdominal Pain Nursing Notes Reviewed: Yes Allergies: Coded Allergies: No Known Allergies (Unverified , 08/12/16) Scheduled Apixaban (Eliquis) 5 Mg Tablet 5 MG PO BID Ipilimumab (Yervoy) 50 Mg/10 Ml Vial 80 MG IV [id number] Lactobacillus Combo No.11 (Probiotic) 1 Each Cap.sprink 1 EACH PO DAILY Levetiracetam (Levetiracetam) 250 Mg Tablet 500 MG PO BID Mirtazapine (Mirtazapine) 15 Mg Tablet 15 MG PO HS Nivolumab (Opdivo) 40 Mg/4 Ml Vial 80 MG IV [id number] Ofloxacin (Ofloxacin) 5 Ml Drops 1 GTT BOTH_EYES QID Prednisone (PredniSONE) 20 Mg Tablet 60 MG PO BID Scheduled PRN Acetaminophen (Acetaminophen) 325 Mg Capsule 325-650 MG PO DAILY PRN PRN For Pain Zolpidem (Ambien) 5 Mg Tablet 5 MG PO HS PRN PRN For Insomnia General Time Seen by MD: 11:32 Chief Complaint Other (prolapsed stoma) Hx Obtained From: Patient, Spouse Arrived By: Walk-in Sudden in Onset?: Yes Onset Occurred: 1 - 4 hours ago Symptom Duration: Since onset Progression since Onset: Constant, Gradually worsening Severity: Current: No pain currently Severity: Maximum: No pain Recent Healthcare: Recent doctor visit, Recent hospitalization Similar Sx Previous: No Past Medical History Past Medical History Notes: Oncology: Dr. Loaiza Past Medical History Metastatic melanoma Hx of SBO Hx of toxic megacolon Reports: Cancer, Stroke Reports: Atrial fibrillation Past Surgical History Lung Lobectomy Brain surgery, July 2016 Family History Noncontributory Smoking History Former Smoker Social History Alcohol Use: 1-3 per week Other Social History: Good social support, , Local resident Ambulatory Status Independent Review of Systems Review of Systems Note: +prolapsed stoma Constitutional: Denies: Fever GI: Reports: Abdominal pain, Denies: Vomiting Complete sys rev & neg: except as marked. Physical Exam Initial Vital Signs Vital Signs (First) Date Time Temp Pulse Resp B/P Pulse Ox O2 Delivery O2 Flow Rate FiO2 11/20/16 10:48 36.1 70 14 111/80 98 Room Air Initial VS: Reviewed Head / Eyes: Atraumatic, Normocephalic, PERRL ENT: Mucous membranes moist, Conjunctiva normal, No scleral icterus Neck: Supple, Non-tender, Full range of motion Lymphatic: No lymphadenopathy Extremities: Vascular intact, Neuro intact, No swelling, No tenderness Skin: Warm, Dry, No cyanosis Neurologic: Alert, Oriented, Nonfocal Psychiatric: Mood/affect normal, Behavior normal, Normal thought content General/Constitutional: Awake, Alert Respiratory / Chest: Atraumatic, Breath sounds NL, Breath sounds = bilat, No respiratory distress, No rales, No rhonchi, No wheezing Cardiovascular: Heart rate NL, Regular rhythm, Heart sounds NL, No murmurs, No rubs, Peripheral circulation NL Abdomen: Soft, Non-tender, No guarding, No rebound, BS normoactive, No distention 4 inches of prolapsed intestine our of the ileostomy that is edematous and oozing a bloody transudate. Interpretation & Diagnostics Lab Results Interpretation Result Diagram: 11/20/16 1200 11/20/16 1200 Test 11/20/16 12:00 White Blood Count 4.2th/mm3 (3.8-10.1) Red Blood Count 4.42mil/mm3 (4.40-5.80) Hemoglobin 12.2g/dL (13.8-17.2) Hematocrit 37.0% (41.0-50.0) Mean Corpuscular Volume 83.7fL (81-100) Mean Corpuscular Hemoglobin 27.6pg (27.0-35.0) Mean Corpuscular Hemoglobin Concent 33.0% (32.0-37.0) Red Cell Distribution Width 17.3% (12.3-15.4) Platelet Count 227bil/L (150-400) Neutrophils (%) (Auto) 85.1% (40-74) Lymphocytes (%) (Auto) 9.0% (14-46) Monocytes (%) (Auto) 5.7% (4-12) Eosinophils (%) (Auto) 0% (0-5) Basophils (%) (Auto) 0% (0-3) Sodium Level 133mEq/L (134-144) Potassium Level 4.2mEq/L (3.5-5.2) Chloride Level 101mEq/L (97-108) Carbon Dioxide Level 20mmol/L (18-29) Blood Urea Nitrogen 40mg/dL (8-27) Creatinine 1.30mg/dL (0.76-1.27) Estimat Glomerular Filtration Rate 58mL/min (>59) Glucose Level 102mg/dL (60-99) Calcium Level 7.9mg/dL (8.5-10.1) Re-Eval/Medical Decision Med Decision/Clinical Course Ileostomy prolapse, attempted twice by myself, subsequently sugar is placed and is reduced at the bedside by general surgery. Standard return and follow-up precautions are given. Source of Hx: Old records, Family Time of Eval: 12:15 Re-Evaluation/Progress Note: Discussed plan with the patient and his . Time of Eval: 13:00 Re-Evaluation/Progress Note: Dr. Lopez is at bedside. He was able to put the stoma back in place. He will discuss discharge with the patient and his . Consultation : Referral / Consult Name: Alicia Campos MD Consulted With: Surgeon Call Returned at: 12:34 Yarn Sorter: Agrees with eval, Agrees with plan Note: Spoke with circulating nurse in the OR who will let Dr. Campos know. Counseled Regarding: Diagnosis, Lab results, Need for follow-up, When/why to return to ED Discharge & Departure Primary Impression: Ileostomy prolapse Disposition: Home Vital Signs - All Vital Signs Date Time Temp Pulse Resp B/P Pulse Ox O2 Delivery O2 Flow Rate FiO2 11/20/16 10:48 36.1 70 14 111/80 98 Room Air )( All Prior VS Reviewed: Yes Condition: Stable Additional Instructions: Your prolapse was reduced by the surgeon today. Follow-up as planned with surgery. Return to the ER as needed for worsening symptoms. Referrals: Sterling Garcia MD (PCP) Scribe Attestation Portions of this note were transcribed by Quyen Moran. I, Dr. Padilla personally performed the history, physical exam and medical decision-making; I reviewed and confirmed the accuracy of the information in the transcribed note. Signed by: Diogenes Mosher, 11/20/2016 and 1320. copies to: Sterling Garcia MD, Timothy S DO Nov 20, 2016 11:33 Quyen Moran Nov 20, 2016 11:46
[2016-11-20 12:11] LABS: BASOPHILS % (AUTO) 0 % (0-3); EOSINOPHILS % (AUTO) 0 % (0-5); MONOCYTES % (AUTO) 5.7 % (4-12); Mean Corpuscular Hemoglobin 27.6 pg (27.0-35.0); Mean Corpuscular Volume 83.7 fL (81-100); NEUTROPHILS % (AUTO) 85.1 % (40-74); Platelet Count 227 bil/L (150-400)
[2016-11-20 13:51] VITALS: BP 99/78; PULSE 68; RESP 14; O2SAT 98
[2016-11-20] MEDS ORDERED: LEVE100014 PO (15:18)
--- NOTE | 2016-11-21 08:53 | CONS ---
[address] [address] CONSULTATION REPORT PATIENT: ANIBAL SOLORIO : 1945 MR#: [id number] ADMIT: 11/20/2016 JOB ID: [id number] DATE OF SERVICE: 11/20/2016 CHIEF COMPLAINT: A 70-year-old gentleman seen in consultation for a prolapsed ileostomy at the request of Lalo Hernandez DO and Alicia Campos MD. HISTORY OF PRESENT ILLNESS: The patient is a 70-year-old gentleman with metastatic melanoma who has undergone two craniotomies, a right lower lobectomy and a stereotactic brain radiotherapy and four infusions of pembrolizumab to which he did not respond and he had undergone infusions of nivolumab and ipilimumab when I met him on September 04, 2016. He was admitted to the hospital before that from August 12 through August 25, due to intractable diarrhea and profound weakness and dehydration with severe dilation of the colon concerning even for toxic megacolon. He had a cecal mass consistent with metastatic melanoma and documented by colonoscopy done by Dr. Toño Thompson. He presented with intussusception of the melanoma when I saw him in August and likely Dr. Will Hernandez performed a laparoscopic right hemicolectomy with end ileostomy and a long Jag's stump on September 07, 2016 because of the poor nutritional status of the patient. He recovered well from the operation and was doing well from a surgical perspective. He continues to have of immunotherapy and had problems with dehydration from vomiting and diarrhea thought to be secondary to the immunotherapy. He had no problems with the stoma until earlier today when he noticed prolapse of the stoma with abdominal pain. We were consulted by Dr. Hernandez as he tried to reduce the stoma and was unsuccessful. I saw the patient for Dr. Campos who was in the operating room. OTHER MEDICAL PROBLEMS: Cerebrovascular accident and seizures after craniotomy and resection of the brain metastasis. PRIOR OPERATIONS: None, other than listed as part of the treatment and workup of his metastatic melanoma. SOCIAL HISTORY: The patient and his are originally from [place]. They have been in the [place] since 1979 and live in [facility]. REVIEW OF SYSTEMS: Twelve point review of systems negative other than the pertinent positives noted in history of present illness and other medical problems. FAMILY HISTORY: No family history of cancers. MEDICATIONS: 1. Apixaban. 2. Ipilimumab. 3. Lactobacillus. 4. Mirtazapine. 5. Nivolumab. 6. Ofloxacin. 7. Prednisone. ALLERGIES: No known drug allergies. INVESTIGATIONS: Labs: November 20, 2016, WBC 4.2, hemoglobin 12.2, platelet count 227, creatinine 1.3, glucose 102. PHYSICAL EXAMINATION: A 70-year-old gentleman in no acute distress. BMI 22.6, temperature 36.1, pulse 70, blood pressure 111/80, saturating 98% on room air. Eyes: Normal pupils, conjunctivae intact. Ears, nose, and throat normal external appearance. Neck: No adenopathy or jugular venous distention. Respiratory: Normal effort, clear to auscultation. Cardiovascular: Regular rate and rhythm. Gastrointestinal: Prolapsed ileostomy with about 4 inches of bowel protruding out with no evidence of darinel ischemia. Abdomen is soft, nontender otherwise. Neurologic no new deficits. Psych: Alert, appropriate. ASSESSMENT AND PLAN: Prolapsed ileostomy. Used sugar and manual pressure and was able to successfully reduce stoma without too much manipulation. If this continues to be a recurrent problem, ultimately the best operation he would benefit from is likely an ileostomy closure with anastomosis of the ileum to the transverse colon. But given his continued poor nutritional situation from the treatment for his melanoma, I believe that it is best not undertaken at this point,. The family knows to follow up with Dr. Hernandez or myself as needed in the surgery clinic. SUZE
[2017-01-10] MEDS ORDERED: LEVO50TA6 PO (09:09)
== END 2016-11-20 13:53 | disposition home or self-care (01) ==
LOC: SED 10:17
DX: K94.19 Other complications of enterostomy (principal); I48.91 Unspecified atrial fibrillation; Z86.73 Personal history of transient ischemic attack (TIA), and cerebral infarction without residual deficits; Z87.891 Personal history of nicotine dependence
CPT/HCPCS: 36415; 80048; 85025; 96374; 99284; J2270

== ENCOUNTER 2016-11-20 14:05 | Emergency (ER) | payer MEDICARE ==
[~2016-11-20] VITALS: Ht 175.3 cm; Wt 69.5 kg
[2016-11-20 14:07] VITALS: BP 141/76; PULSE 88; RESP 18; O2SAT 100
[2016-11-20] MEDS ORDERED: 0.9% Sodium Chloride 1,000 ML IV ONE (14:10)
--- NOTE | 2016-11-20 14:10 | ED.REPORT ---
HPI-Seizure Date of Service Nov 20, 2016 ED Provider: Lalo Padilla DO 70 year old male who was just discharged from ED returns after he had a seizure that lasted less than 2 minutes. Patient was awake for entirety of seizure which is similar to his previous seizures. He has history of a stroke and has residual left-sided weakness. He took his normal dose of 500 mg Keppra this morning. Denies new weakness or numbness. His states that his left sided weakness and facial droop seems to be similar to baseline. Nursing Notes Stated Complaint: POSS STROKE Chief Complaint: Seizure Nursing Notes Reviewed: Yes Allergies: Coded Allergies: No Known Allergies (Unverified , 11/20/16) Scheduled Apixaban (Eliquis) 5 Mg Tablet 5 MG PO BID Ipilimumab (Yervoy) 50 Mg/10 Ml Vial 80 MG IV [id number] Lactobacillus Combo No.11 (Probiotic) 1 Each Cap.sprink 1 EACH PO DAILY Levetiracetam (Levetiracetam) 250 Mg Tablet 500 MG PO BID Levetiracetam (Keppra) 1,000 Mg Tablet 1,000 MG PO BID Mirtazapine (Mirtazapine) 15 Mg Tablet 15 MG PO HS Nivolumab (Opdivo) 40 Mg/4 Ml Vial 80 MG IV [id number] Ofloxacin (Ofloxacin) 5 Ml Drops 1 GTT BOTH_EYES QID Prednisone (PredniSONE) 20 Mg Tablet 60 MG PO BID Scheduled PRN Acetaminophen (Acetaminophen) 325 Mg Capsule 325-650 MG PO DAILY PRN PRN For Pain Zolpidem (Ambien) 5 Mg Tablet 5 MG PO HS PRN PRN For Insomnia General Time Seen by Provider: 14:07 Chief Complaint Chief Complaint: Seizure, generalized Seizure Anatomic Location: Generalized Hx Obtained From: Patient, Spouse Arrived By: Wheelchair Onset Occurred: Just prior to arrival Context of Onset: Other Symptom Duration: 1 - 15 minutes Progression Since Onset: Resolved Severity: Current: No pain currently Severity: Maximum: No pain Recent Healthcare: Recent doctor visit, Recent hospitalization Similar Sx Previous: Yes Risk-Seizure NIH Stroke Scale Level of Consciousness: Alert and responsive (0) Ask Month & Age: Both questions right (0) Open/Close Eyes/Hand Checking Clerk: Performs both tasks (0) Horizontal EO Movements: None (0) Visual Foss: No visual loss (0) Facial Palsy: Minor paralysis (1) (chronic) Right Arm Motor Drift (10s): No drift 10 sec (0) Left Arm Motor Drift (10s): Drift, not touch bed (1) (chronic) Right Leg Motor Drift (5s): No drift 5 sec (0) Left Leg Motor Drift (5s): No drift 5 sec (0) Limb Ataxia FNF/Heel-Mcleod: Ataxia in 2 limbs (2) (chronic) Sensation (Arms/Legs/Face): No sensory loss (0) Language Aphasia: No aphasia, normal (0) Dysarthria: No dysarthria, normal (0) Extinction/Inattention: No exctinct/inattent (0) NIHSS Score: 4 (points appear to from be chronic symptoms) Time NIHSS Performed: 14:20 Date NIHSS Performed: Nov 20, 2016 Past Medical History Past Medical History Notes: Oncology: Dr. Loaiza Past Medical History Metastatic melanoma Hx of SBO Hx of toxic megacolon Reports: Cancer, Stroke Reports: Atrial fibrillation Past Surgical History Lung Lobectomy Brain surgery, July 2016 Family History Noncontributory Smoking History Former Smoker Social History Alcohol Use: 1-3 per week Other Social History: Good social support, , Local resident Ambulatory Status Independent Review of Systems Neurologic: Reports: Focal weakness (chronic), Seizure, Shaking, Denies: Numbness Complete sys rev & neg: except as marked. Physical Exam Initial Vital Signs Vital Signs (First) Date Time Temp Pulse Resp B/P Pulse Ox O2 Delivery O2 Flow Rate FiO2 11/20/16 14:07 36.4 88 18 141/76 100 Room Air Initial VS: Reviewed ENT: Mucous membranes moist, Conjunctiva normal, No scleral icterus Back: No CVA tenderness Lymphatic: No lymphadenopathy Skin: Warm, Dry, No cyanosis Psychiatric: Mood/affect normal, Behavior normal, Normal thought content General/Constitutional: Awake, Alert Neck: Supple, No meningismus, Full range of motion, No swelling, Non-tender Respiratory / Chest: Atraumatic, Breath sounds NL, Breath sounds = bilat, No respiratory distress Cardiovascular: Heart rate NL, Regular rhythm, Heart sounds NL Neurologic: Oriented X3, Speech NL Left facial droop, left arm weakness. Head / Eyes: Atraumatic, Normocephalic, PERRL, EOMI Abdomen: Soft, Non-tender, No guarding, No rebound, BS normoactive, No distention Ileostomy in right lower quadrant Interpretation & Diagnostics ECG Interpretation ECG Interpretation: Sinus rhythm PVCs Time: 14:21 Interpreted by: ED physician CT Head Interpretation IMPRESSION: No acute intracranial disease process. Dictated by: Zuleima Peck MD, PhD on 11/20/2016 at 14:42 Approved by: Zuleima Peck MD, PhD on 11/20/2016 at 14:47 Re-Eval/Medical Decision Med Decision/Clinical Course Breakthrough seizure. Patient has a history of prior stroke with left-sided deficits with symptoms have waxed and waned ongoing since. He presents today after a breakthrough seizure similar to prior seizure episodes in the past. His head CT is unremarkable neck setting of prior craniotomy, there is no focal edema is no obvious intracranial hemorrhage, there is no area of infarct or new metastasis. This was compared to an MRI of the brain a month ago and unchanged. The patient and his both agree that he does not have any new neurologic deficits that would suggest acute stroke. He is not a TPA candidate because this is not a stroke. Furthermore he is on our request, has a history of brain hemorrhage, brain metastasis, to craniotomy surgeries, and had a seizure at onset today. His symptoms are improving and he wishes to go home. His oncologist is in agreement with discharge plan. Return precautions given. Keppra Increased to 1000 g twice a day. Source of Hx: Old records Consultation : Referral / Consult Name: Randee Loaiza MD Call Returned at: 15:07 Medical Education Manager: Will see patient (Will follow up with patient. ), Agrees with plan Counseled Regarding: Diagnosis, Lab results, Need for follow-up, When/why to return to ED Discharge & Departure Impression: Primary Impression: Breakthrough seizure Disposition: Home Discharge Condition All VS Reviewed: Yes Condition: Stable Additional Instructions: Thank you for returning to the ER. We are so sorry that you had a seizure today. Increase your Keppra to 1000 mg twice daily. Call your oncologist and neurosurgeon today for further evaluation as needed. Return to the ER for seizures lasting more than 15 minutes, multiple seizures without return to normal cognitive baseline, new signs or symptoms of stroke, or other concerns. Referrals: Sterling Garcia MD (PCP) Scribe Attestation Portions of this note were transcribed by Yoandy Garcia. I, Dr. Padilla personally performed the history, physical exam and medical decision-making; I reviewed and confirmed the accuracy of the information in the transcribed note. Signed by: Diogenes Parker,11/20/2016 and 7920. copies to: Sterling Garcia MD, Timothy S DO Nov 20, 2016 14:10 Yoandy Garcia Nov 20, 2016 14:22 Quyen Moran Nov 20, 2016 14:28
[2016-11-20] MEDS ORDERED: levETIRAcetam Inj 1,000 MG in IV Premix 1 EACH IV ONE (14:20)
--- NOTE | 2016-11-20 14:48 | DRSVH ---
PROCEDURE: CT BRAIN WITHOUT CONTRAST ([id number]) INDICATIONS: seizure, left weakness, h/o CVA and brain mets TECHNIQUE: Noncontrast 4.5 mm thick angled axial sections acquired from the foramen magnum to the vertex, with c oronal reformats. COMPARISON: [facility], MR, MR BRAIN W&WO CON, 10/16/2016, 7:14. [facility], MR, MR BRAIN W&WO CON, 09/12/2016, 12:18. Outside Film, CT, CT BRAIN W CON, 02/26/2016, 11:32. FINDINGS: Image quality: Excellent. CSF spaces: Basal cisterns are patent. No extra-axial fluid collections. The ventricles are symmet rony in size and shape. Brain: No intracranial bleeds or masses. There is cerebral volume loss for age, with resultant vent ricular and sulcal prominence. Surgical resection cavity noted in the right frontal lobe which is oss ific change compared to recent MRIs. There are periventricular and deep white matter chronic small ve ssel ischemic changes. There is intracranial internal carotid artery atherosclerosis. Skull and face: Postsurgical changes compatible with left frontotemporal craniotomy for resection of right frontal lobe mass noted. The visualized facial bones appear intact, without suspicious lesions. Sinuses: Visualized sinuses and mastoids are clear. IMPRESSION: No acute intracranial disease process. Dictated by: Zuleima Peck MD, PhD on 11/20/2016 at 14:42 Approved by: Zuleima Peck MD, PhD on 11/20/2016 at 14:47
[2016-11-20] MEDS ORDERED: LEVE100014 PO (15:18)
[2016-11-20 16:27] VITALS: BP 120/64; PULSE 80; RESP 18; O2SAT 100
[2017-01-10] MEDS ORDERED: LEVO50TA6 PO (09:09)
== END 2016-11-20 16:29 | disposition home or self-care (01) ==
LOC: SED 14:05
DX: G40.909 Epilepsy, unspecified, not intractable, without status epilepticus (principal); Z86.73 Personal history of transient ischemic attack (TIA), and cerebral infarction without residual deficits; Z87.891 Personal history of nicotine dependence
CPT/HCPCS: 70450; 93005; 96361; 96374; 99285; J1953; J7030

== ENCOUNTER 2017-01-13 10:07 | Emergency (ER) | payer MEDICARE ==
[~2017-01-13] VITALS: Ht 175.3 cm; Wt 76.4 kg
[~2017-01-13 10:07] MED LIST changes: +LEVE100014 PO; +LEVO50TA6 PO; -OFLO5DRO5 BOTH_EYES; -PRE20 PO
[2017-01-13 10:09] VITALS: BP 95/71; PULSE 88; RESP 16; O2SAT 100
--- NOTE | 2017-01-13 11:02 | DRSVH ---
PROCEDURE: CT BRAIN WITHOUT CONTRAST ([id number]) INDICATIONS: 71 year-old male with history of melanoma with left-sided deficit. TECHNIQUE: Noncontrast 4.5 mm thick angled axial sections acquired from the foramen magnum to the vertex, with c oronal reformats. COMPARISON: [facility], MR, MR BRAIN W&WO CON, 10/16/2016, 7:14. [facility], MR, MR BRAIN W&WO CON, 01/10/2017, 14:18. [facility], CT, CT BRAIN WO CON, 11/20/2016, 14 :33. FINDINGS: Image quality: Excellent. CSF spaces: Basal cisterns are patent. There is mild cerebral volume loss with prominence of the ve ntricles and sulci. Brain: In the right frontal lobe, there is a focus of intraparenchymal hemorrhage associated with th e mass lesion demonstrated on recent MRI. This measures up to proximal 0.9 cm in diameter. There is associated vasogenic edema in the right frontal lobe. The small right subdural fluid collection dem onstrated on MRI is not not well-visualized on CT with a probable small component along the right fro ntal lobe measuring up to 3 mm. No definite additional mass lesions identified. No midline shift or other evidence of herniation. There are patchy areas of subcortical and white matter hyperattenuati on consistent with mild chronic small vessel ischemic changes. Skull and face: There are postsurgical changes consistent with prior right frontal craniotomy redemon strated. No acute fractures. Sinuses: Visualized sinuses and mastoids are clear. IMPRESSION: 1. Hemorrhagic mass in the right frontal lobe consistent with metastatic disease redemonstrated as s een on the recent MRI. There is associated vasogenic edema in the right frontal lobe without midline shift or other evidence of herniation. 2. Small subdural collection demonstrated on recent MRI is not well-visualized on CT. There is no i ncrease in size compared to the recent study. Findings discussed with Dr. Carney on 01/13/17 at 10:55 AM. Dictated by: Reji Loya M.D. on 01/13/2017 at 10:50 Approved by: Reji Loya M.D. on 01/13/2017 at 11:01
--- NOTE | 2017-01-13 11:08 | ED.REPORT ---
HPI-General Illness Date of Service Jan 13, 2017 ED Provider: Lizbeth Carney MD The patient is a 71 year old male with history of metastatic melanoma s/p lobectomy and craniotomy x2, atrial fibrillation, DVT on Eliquis, and stroke, who presents to the emergency department complaining of left-sided weakness. After his stroke in January of last year he had residual left-sided weakness that was improved with physical therapy. He feels that this weakness has returned and last night it was more prominent. He has noticed a headache over the last 2 days that was improved with Tylenol. He feels comfortable at this moment. Oncologist: Dr. Loaiza The patient is a full code at this point. Nursing Notes Stated Complaint: POSS STROKE Chief Complaint: Neuro Symptoms/ Deficits Nursing Notes Reviewed: Yes Allergies: Coded Allergies: No Known Allergies (Unverified , 11/20/16) Scheduled Apixaban (Eliquis) 5 Mg Tablet 5 MG PO BID Dexamethasone (Dexamethasone) 4 Mg Tablet 4 MG PO BID Ipilimumab (Yervoy) 50 Mg/10 Ml Vial 80 MG IV [id number] Lactobacillus Combo No.11 (Probiotic) 1 Each Cap.sprink 1 EACH PO DAILY Levetiracetam (Levetiracetam) 250 Mg Tablet 500 MG PO BID Levetiracetam (Keppra) 1,000 Mg Tablet 1,000 MG PO BID Levothyroxine (Levothyroxine) 50 Mcg Tablet 50 MCG PO HS Mirtazapine (Mirtazapine) 15 Mg Tablet 15 MG PO HS Nivolumab (Opdivo) 40 Mg/4 Ml Vial 80 MG IV [id number] Scheduled PRN Acetaminophen (Acetaminophen) 325 Mg Capsule 325-650 MG PO DAILY PRN PRN For Pain Zolpidem (Ambien) 5 Mg Tablet 5 MG PO HS PRN PRN For Insomnia General Time Seen by MD: 10:34 Chief Complaint Weakness Hx Obtained From: Patient, Spouse Arrived By: Walk-in Sudden in Onset?: No Onset Occurred: Yesterday Symptom Duration: Since onset Location: : Head Quality: Painful Severity: Current: No pain currently Severity: Maximum: Moderate Recent Healthcare: No recent hospitalization, Recent doctor visit Similar Sx Previous: Yes Past Medical History Past Medical History Notes: Oncology: Dr. Loaiza Past Medical History Metastatic melanoma Hx of SBO Hx of toxic megacolon Reports: Cancer, Stroke Reports: Atrial fibrillation Past Surgical History Lung Lobectomy Brain surgery x2 Family History Noncontributory Smoking History Former Smoker Social History Alcohol Use: 1-3 per week Other Social History: Good social support, , Local resident Ambulatory Status Independent Review of Systems Full Review of Systems Neurologic: Reports: Focal weakness, Headache, Weakness Complete sys rev & neg: except as marked. Physical Exam Vital Signs Vital Signs Date Time Temp Pulse Resp B/P Pulse Ox O2 Delivery O2 Flow Rate FiO2 01/13/17 13:21 75 20 93/70 100 Room Air 01/13/17 10:09 36.2 88 16 95/71 100 Room Air Initial VS: Reviewed Head / Eyes: Atraumatic, Normocephalic, PERRL ENT: Mucous membranes moist, Conjunctiva normal, No scleral icterus Neck: Supple, Non-tender, Full range of motion Respiratory: Breath sounds normal, Clear to auscultation, No respiratory distress Cardiovascular: Regular rate & rhythm, Heart sounds normal, Intact distal pulses Abdomen / GI: Soft, Non-tender, No guarding, No rebound, No distention Lymphatic: No lymphadenopathy Extremities: Vascular intact, Neuro intact, No swelling, No tenderness Skin: Warm, Dry, No cyanosis Psychiatric: Mood/affect normal, Behavior normal, Normal thought content General/Constitutional: Awake, Alert, Cooperative Lower Extremity / Pelvis / MS: Neurologic intact, Vascular intact, No edema Ankle / Foot: Neurologic intact, Vascular intact, No edema Neurologic: Oriented X3 Speech: Positive: Slurred Mild dysarthria. Left arm has 4/5 strength. Left-sided facial droop. Interpretation & Diagnostics Lab Results Interpretation Result Diagram: 01/13/17 1056 01/13/17 1056 Test 01/13/17 10:45 01/13/17 10:56 Hold Fischer Top Tube Received (Received) White Blood Count 5.0th/mm3 (3.8-10.1) Red Blood Count 3.44mil/mm3 (4.40-5.80) Hemoglobin 9.6g/dL (13.8-17.2) Hematocrit 29.3% (41.0-50.0) Mean Corpuscular Volume 85.2fL (81-100) Mean Corpuscular Hemoglobin 27.9pg (27.0-35.0) Mean Corpuscular Hemoglobin Concent 32.8% (32.0-37.0) Red Cell Distribution Width 15.5% (12.3-15.4) Platelet Count 226bil/L (150-400) Neutrophils (%) (Auto) 41.0% (40-74) Lymphocytes (%) (Auto) 36.9% (14-46) Monocytes (%) (Auto) 18.9% (4-12) Eosinophils (%) (Auto) 2.2% (0-5) Basophils (%) (Auto) 0.8% (0-3) Prothrombin Time 10.6sec (8.1-12.5) Prothromb Time International Ratio 0.99ratio Activated Partial Thromboplast Time 30.1sec (22.8-33.0) Sodium Level 133mEq/L (134-144) Potassium Level 3.6mEq/L (3.5-5.2) Chloride Level 100mEq/L (97-108) Carbon Dioxide Level 18mmol/L (18-29) Blood Urea Nitrogen 18mg/dL (8-27) Creatinine 1.34mg/dL (0.76-1.27) Estimat Glomerular Filtration Rate 56mL/min (>59) Glucose Level 93mg/dL (60-99) Calcium Level 9.3mg/dL (8.5-10.1) Total Bilirubin 0.3mg/dL (0.0-1.2) Aspartate Amino Transf (AST/SGOT) 16U/L (0-50) Alanine Aminotransferase (ALT/SGPT) 18U/L (0-44) Alkaline Phosphatase 65U/L (25-160) Troponin T 0.018ug/L (0.0-0.011) Total Protein 6.3g/dL (6.4-8.4) Albumin 3.2g/dL (3.4-5.0) ECG Interpretation ECG Interpretation: Sinus rhythm with a rate of 69 Prolonged MT interval Time: 11:05 Interpreted by: ED physician CT Head Interpretation IMPRESSION: 1. Hemorrhagic mass in the right frontal lobe consistent with metastatic disease redemonstrated as seen on the recent MRI. There is associated vasogenic edema in the right frontal lobe without midline shift or other evidence of herniation. 2. Small subdural collection demonstrated on recent MRI is not well-visualized on CT. There is no increase in size compared to the recent study. Findings discussed with Dr. Carney on 01/13/17 at 10:55 AM. Dictated by: Reji Loya M.D. on 01/13/2017 at 10:50 Study: Head CT no contrast Interpretation / Wet Read by: Interpret - Radiologist, Discussed w radiologist Re-Eval/Medical Decision Med Decision/Clinical Course Progressive left-sided neurologic symptoms in the setting of widely metastatic melanoma. Lesion or current in the brain MRI was done on Friday showed bleeding into the area. Patient had increasing facial droop and left arm weakness today. Repeat CT scan today does not suggest continued bleeding. Discussed with Dr. orestes Alan. He does have an appointment scheduled tomorrow already. We will ask him to stop his eloquis. We will start Decadron 4 mg twice a day with the first 10 mg dose in the emergency department. Will need continued discussion on future care and prognosis. Given the recurrent disease in the brain after 2 previous surgeries and now bleeding into that area, prognosis and long-term survival is low. Patient's and his are not yet at a place in their acceptance of understanding to have a full discussion of this today. Source of Hx: Old records, Family Summary of Info: CT CHEST, ABDOMEN AND PELVIS WTIH CONTRAST IMPRESSION: 1. Slight increase in lateral segment left hepatic lobe metastatic focus. 2. Resolved right midlung nodules. 3. No change in right pleural thickening. 4. Diffuse colonic thickening. Differential considerations include infectious colitis (e.g., Clostridium difficile colitis), inflammation, and ischemia. Dictated by: Wade Rodríguez M.D. on 01/10/2017 at 14:03 MRI BRAIN WITH AND WITHOUT CONTRAST IMPRESSION: 1. Enlarging dural based enhancing mass along the right frontal lobe consistent with recurrent metastatic disease. There is evidence of internal hemorrhage within the mass. There is mild associated mass effect on the right frontal lobe without midline shift. 2. New small right subdural collection measuring up to 0.6 cm demonstrates some internal blood product. The findings may reflect a small seroma or small hematoma versus blood product within a reactive fluid collection. 3. Postsurgical changes along right frontal lobe redemonstrated consistent with prior resection and craniotomy. 4. Small foci of GRE susceptibility in the left medulla and left occipital lobe redemonstrated which may represent sequelae of prior small petechial hemorrhages or amyloid deposition. Dictated by: Reji Loya M.D. on 01/11/2017 at 7:28 Time of Eval: 10:56 Re-Evaluation/Progress Note: Discussed the CT and MRI findings with the patient and his . Discussed coarse of workup and potentional treatment plans. Time of Eval: 13:10 Re-Evaluation/Progress Note: Rechecked the patient. Discussed plan for discharge. All questions were addressed. Consultation #1: Referral / Consult Name: Reji Loya MD Call Returned at: 10:54 Note: Spoke with the radiologist about the patient's head CT scan and recent brain MRI. Consultation #2: Referral / Consult Name: Randee Loaiza MD Consulted With: Knit Tubing Dyer Call Returned at: 11:55 Seaman: Will see in office, Agrees with eval, Agrees with plan Note: He is okay with the patient being discharged home. Counseled Regarding: Diagnosis, Lab results, Need for follow-up, When/why to return to ED Discharge & Departure Primary Impression: Metastatic melanoma Additional Impression: Brain metastases Disposition: Home Discharge Condition All VS Reviewed: Yes Condition: Stable Additional Instructions: Thank you for entrusting us with your care today. I spoke with Dr. Loaiza who agrees with our plan for discharge. There is a small amount of bleeding into the recurrent lesion in the front of your brain. The progressive symptoms you are having are likely from a bit of swelling here. The bleeding is stable from Friday and there is no sign of acute brain herniation (the brain swelling down through the bottom of the skull). Dr Loaiza did not feel that emergent neurosurgical intervention would be needed at this time. He recommended steroids for the edema. You got 10mg of decadron in the ER today. He would like you to continue at 4mg am and pm. I've given you a prescription for this. It has been electronically sent to [facility] for you today. He requests that you keep your apt with him tomorrow to review all the studies and figure out the best plan for you. Please return to the emergency department for any new or concerning symptoms. Referrals: Sterling Garcia MD (PCP) Randee Loaiza MD Scribe Attestation Portions of this note were transcribed by Quyen Moran. I, Dr. Carney personally performed the history, physical exam and medical decision-making; I reviewed and confirmed the accuracy of the information in the transcribed note. Signed by: Diogenes Mosher, 01/13/2017 at 1315. copies to: Sterling Garcia MD; Randee Loaiza MD, Shawna L MD Jan 13, 2017 11:08 Quyen Moran Jan 13, 2017 11:12
[2017-01-13] MEDS ORDERED: Dexamethasone Inj 10 MG in 0.9% Sodium Chloride-Pha MIX 50 ML IV ONE (11:10)
[2017-01-13 11:17] LABS: BASOPHILS % (AUTO) 0.8 % (0-3); EOSINOPHILS % (AUTO) 2.2 % (0-5); MONOCYTES % (AUTO) 18.9 % (4-12); Mean Corpuscular Hemoglobin 27.9 pg (27.0-35.0); Mean Corpuscular Volume 85.2 fL (81-100); Platelet Count 226 bil/L (150-400)
[2017-01-13 11:25] LABS: INR 0.99 ratio
[2017-01-13 11:35] LABS: TROPONIN T 0.018 ug/L (0.0-0.011)
--- NOTE | 2017-01-13 11:52 | NUR ---
Evaluation completed. Please go to "Notes" then click on "Assessments and Notes" (bottom left corner of screen). Then select appropriate discipline tab on top of screen.
[2017-01-13] MEDS ORDERED: DXM4T PO (12:33)
[2017-01-13 13:21] VITALS: BP 93/70; PULSE 75; RESP 20; O2SAT 100
== END 2017-01-13 13:28 | disposition home or self-care (01) ==
LOC: SED 10:07
DX: C43.9 Malignant melanoma of skin, unspecified (principal); C79.31 Secondary malignant neoplasm of brain; I82.509 Chronic embolism and thrombosis of unspecified deep veins of unspecified lower extremity; Z86.73 Personal history of transient ischemic attack (TIA), and cerebral infarction without residual deficits; Z87.891 Personal history of nicotine dependence; Z79.01 Long term (current) use of anticoagulants